=== PATIENT | male | born 1955 | race Caucasian/White ===

== ENCOUNTER 2016-12-30 09:56 | Observation (INO) | payer BC ==
[~2016-12-30] VITALS: Ht 167.6 cm; Wt 159.2 kg
[2017-01-02] MEDS ORDERED: FOLVITE-DPS1 MG PO (10:09)
[2017-01-02] MEDS ORDERED: LOPRESSOR DPS12.5 MG PO (10:09)
[2017-01-02] MEDS ORDERED: BREO ELLIP1 PUFF/DOS IH (10:10)
[2017-01-02] MEDS ORDERED: VITAMIN B1100 MG PO (10:10)
[2017-01-02] MEDS ORDERED: COLACE-DPS100 MG PO (10:10)
[2017-01-02] MEDS ORDERED: MAALOX DPS30 ML PO (10:10)
[2017-01-02] MEDS ORDERED: TYLENOL DPS325 MG PO (10:10)
[2017-01-02] MEDS ORDERED: THERA1 EACH PO (10:10)
--- NOTE | 2017-01-04 08:32 | HP ---
ADMIT: 12/30/2016 RM/LOC: 404 [facility] MR#: [id number] [address] [place] [address] History and Physical SEX: M AGE: 61 : 1955 DATE OF SERVICE: 12/30/2016 CHIEF COMPLAINT: Lightheadedness. HISTORY OF PRESENT ILLNESS: Giovanni Dunn is a very pleasant 61-year-old male with past medical history significant for chronic alcohol abuse, COPD, and hypertension. The patient was recently hospitalized for alcohol withdrawal and was discharged to rehab on April 29. The patient was doing well; however, yesterday after engaging in some physical exercises, got up and felt lightheaded. At that time, the patient had to stabilize himself against a railing. He felt lightheaded. The patient spent the rest of his day lying in bed. The patient denies any shortness of breath, palpitations, or chest pain during this incident. Today, the patient was eating breakfast, got up from a seated position and once again felt lightheaded, requiring him stabilize himself against another railing. The patient did not fall, hit his head or sustain any trauma. Once again, the patient did not have any chest pain, palpitations, vertigo-type symptoms. The patient did feel slightly sweaty. Staff evaluated him there. Apparently, per patient took his blood pressure, which was 90/66. At this time, the patient was brought over to the emergency department for further evaluation. Vital signs were significant for blood pressure on arrival lying down 164/72; however, standing 116/61. Internal Medicine was then asked to evaluate the patient for further recommendations. With respect to patient's hypertensive history and history of COPD, it appears the patient was only taking 3 medicines prior to his last admission. He states he was taking 1 antihypertensive, which he cannot remember what it was. Breo and a multivitamin. It is unclear when the patient was placed on the clonidine patch or metoprolol. With respect to his alcohol withdrawal history, the patient has been sober now for 3 weeks. The patient does have a history of an alcohol withdrawal seizure a couple of years ago, but does not recall history of DTs or ICU admission, requiring intubation, however records indicate otherwise. The patient is currently resting comfortably in bed. Patient received some IV fluids when he was in the emergency department. The patient states that most of his symptoms usually are not when he is lying down, but when he gets up and tries to ambulate though. The patient currently denies any chest pain, shortness of breath, nausea, vomiting, palpitations. No recent changes in bowel habits. No diarrhea or bright red blood per rectum or melena. Overall, the patient currently feels like his normal self and is tolerating diet. REVIEW OF SYSTEMS: A 12-point review of systems was obtained and negative except for what was mentioned in the HPI. PAST MEDICAL HISTORY: Significant for COPD, hypertension, alcohol use disorder. ADMIT: 12/30/2016 RM/LOC: 404 [facility] MR#: [id number] [address] [place] [id number] [place] [address] History and Physical SEX: M AGE: 61 : 1955 PAST SURGICAL HISTORY: Tonsillectomy, unknown age. FAMILY HISTORY: None contributory. SOCIAL HISTORY: Retired [employer]. Lives with at home. Significant ETOH use, ALLERGIES: NO KNOWN DRUG ALLERGIES. MEDICATIONS: See MAR. PHYSICAL EXAMINATION: VITAL SIGNS: Blood pressure 183/93, pulse 63, respiration rate 16, temperature 98.9, saturating 93% on room air. GENERAL: The patient is comfortable, conversive. Appears to have no pain and is in no acute distress. HEAD, EARS, EYES, NOSE AND THROAT: Extraocular movements are intact. No icterus, no conjunctival injection. No cervical adenopathy. LUNGS: Clear to auscultation bilaterally. No wheezing or rhonchi. No crackles. Breathing is nonlabored. CARDIOVASCULAR: Heart rate is regular rate and rhythm. Normal S1 and S2. No heaves. Good posterior tibial and dorsalis pedis pulses as well as radial pulses. ABDOMEN: Bowel sounds active, soft, nontender in all 4 quadrants. EXTREMITIES: No signs of trauma. No edema in bilateral lower extremities. NEUROLOGIC: Upper and lower strength 5/5. Sensation intact to light touch. Cranial nerves II through XII intact, otherwise grossly normal. LABORATORY DATA: Significant for WBC of 10.3, hemoglobin of 9.9, platelet of 344, MCV of 102.1. BMP with sodium of 140, potassium low at 2.8, chloride 103, CO2 of 28, BUN 6, creatinine 0.9, glucose of 116. AST 39, ALT 43, alkaline phosphatase high at 215, albumin low at 2.4, calcium corrected is 9.6. IMAGING: No imaging was obtained. ASSESSMENT: This is a 61-year-old man with chronic obstructive pulmonary disease and hypertension, admitted to the hospital with lightheadedness and orthostatic hypotension. PLAN: 1. Orthostatic hypotension. Blood pressure currently hypertensive while lying down. The patient was orthostatic though in the emergency department. It is unclear when the patient was placed on clonidine, as this is not a home medication from before his last admission. We will discontinue clonidine patch for now. Given elevated blood pressure, we will continue metoprolol as it is relatively low dose and monitor. Continue IV fluids at 125 mL/hr of normal saline. Plan to recheck orthostatics in the morning. Patient's home medication list also included lorazepam for unknown reasons as the patient states he does not have a history of anxiety disorder, we will hold this medication to make sure it is not contributing to his symptoms. 2. Hypertension, essential. Continue metoprolol for now. We will hold off on any p.r.n. medications for now given the patient has clonidine and ADMIT: 12/30/2016 RM/LOC: [address] [place] [address] MR#: [id number] [address] [facility] [place] [address] History and Physical SEX: M AGE: 61 : 1955 metoprolol in his system. 3. Chronic obstructive pulmonary disease. Currently saturating well on room air. We will continue Breo and monitor. 4. Alcohol abuse. The patient has now been sober for 3 weeks, so is at a withdrawal stage. Of note, the patient does have complicated withdrawal history with history of seizure. 5. Hypokalemia. Potassium 2.8 in the emergency room, was given replacement. We will recheck potassium in the morning as well as mag and may require replacement again. 6. Deep vein thrombosis prophylaxis. Lovenox. 7. Diet. General diet. DISPOSITION: Likely back to rehabilitation tomorrow pending uneventful hospital course. Any questions or concerns, please call me at [phone]. Kody Christianson MD Resident / Breann Martínez MD / yoshi JOB #: [id number] CC: Breann Martínez, Attending Physician Breann Martínez, Family Physician
--- NOTE | 2017-01-11 10:17 | ER ---
ADMIT: 12/30/2016 RM/LOC: 404 [facility] MR#: [id number] [address] [place] [address] Emergency Room Report SEX: M AGE: 61 : 1955 DATE: 12/30/2016 ADDENDUM: CHIEF COMPLAINT: Dizziness. HISTORY OF PRESENT ILLNESS: This is a 61-year-old male who just was recently discharged out of the hospital for alcoholism. He went to [facility] for rehab to help him get his strength back. The reason he is sent over today is he has just been really dizzy, he feels like he is going to fall. When I asked him about eating and drinking, he says he is trying to drink water but he just does not really have an appetite. COURSE IN THE EMERGENCY ROOM: Gave him a liter of fluids. Did a CBC, CMP, positive findings; his white count was 10.3, his hemoglobin 9.9, platelets are normal; potassium was low at 2.8, his glucose is 116, calcium 9.6 corrected, albumin low at 2.4. I did speak with Dr. Martínez for [facility], she is admitting the patient. After we did orthostatics, he still drops his systolic blood pressure about 40 points when going to standing. She is going to continue fluids and admit the patient. CLINICAL IMPRESSION: Dizziness secondary to being orthostatic. JEREMIAH Fairchild / Everett Husain MD / modl JOB #: [id number] CC: Breann Martínez MD, Attending Physician Breann Martínez MD, Family Physician
== END 2016-12-31 14:32 ==
LOC: ER 09:56 → 4PCU 11:30
PROVIDERS: ADMIT Internal Medicine
DX: I95.1 Orthostatic hypotension (principal); I10 Essential (primary) hypertension; J44.9 Chronic obstructive pulmonary disease, unspecified; E87.6 Hypokalemia; Z79.899 Other long term (current) drug therapy; Z98.890 Other specified postprocedural states